=== PATIENT | male | born 1975 | race Caucasian/White ===

== ENCOUNTER 2019-09-27 23:45 | Emergency (ER) | payer BC ==
--- NOTE | 2019-09-27 23:47 | ERPHSYRPT ---
- History of Present Illness Time Seen by Provider: 09/27/19 23:47 Source: patient, family Exam Limitations: no limitations Physician History: 44 y/o white male presents to ED after being bit and scratched by his own pitbull dog. pt had six beers prior to being bit. pts dogs immunizations are not utd. pt was interviewed by police here in ED. pt has nkda. pts spouse states pt walked to restroom after incident so she could evaluated pts bites and scratches. pt then passed out hitting his head slightly. spouse thinks pt had vasovagal reaction. pt denies headache he denies cp. pts spouse brought pt to ED where he is awake alert and oriented walking to registration and then to his room. Timing/Duration: today Quality: burning, painful Severity: moderate Location: face, hands (left) Possible Causes: other (dog bite) Associated Symptoms: denies symptoms Allergies/Adverse Reactions: No Known Drug Allergies Allergy (Unverified 09/28/19 00:09) - Review of Systems Constitutional: No Symptoms Eyes: No Symptoms Ears, Nose, & Throat: No Symptoms Respiratory: No Symptoms Cardiac: No Symptoms Abdominal/Gastrointestinal: No Symptoms Genitourinary Symptoms: No Symptoms Musculoskeletal: No Symptoms Skin: Other (bite and abrasion to left hand and face) Neurological: No Symptoms Psychological: No Symptoms Endocrine: No Symptoms Hematologic/Lymphatic: No Symptoms Immunological/Allergic: No Symptoms All Other Systems: Reviewed and Negative - Past Medical History Neurological History: No Pertinent History ENT History: No Pertinent History Cardiac History: No Pertinent History Respiratory History: No Pertinent History Endocrine Medical History: No Pertinent History Musculoskeletal History: No Pertinent History GI Medical History: No Pertinent History History: No Pertinent History Psycho-Social History: No Pertinent History Male Reproductive Disorders: No Pertinent History - Past Surgical History Neuro Surgical History: No Pertinent History Cardiac: No Pertinent History Respiratory: No Pertinent History Gastrointestinal: No Pertinent History Genitourinary: No Pertinent History Musculoskeletal: No Pertinent History Male Surgical History: No Pertinent History - Nursing Vital Signs Nursing Vital Signs: Initial Vital Signs Temperature 97.5 F 09/27/19 23:53 Pulse Rate 79 09/27/19 23:53 Respiratory Rate 17 09/27/19 23:53 Blood Pressure 136/102 09/27/19 23:53 O2 Sat by Pulse Oximetry 98 09/27/19 23:53 Pain Scale Pain Intensity 10 - Physical Exam General Appearance: no apparent distress, alert Eye Exam: PERRL/EOMI, eyes nml inspection Ears, Nose, Throat Exam: normal ENT inspection, moist mucous membranes Neck Exam: normal inspection, non-tender, supple, full range of motion Respiratory Exam: normal breath sounds, lungs clear, airway intact, No chest tenderness, No respiratory distress Cardiovascular Exam: regular rate/rhythm, normal heart sounds, normal peripheral pulses Gastrointestinal/Abdomen Exam: soft, normal bowel sounds, No tenderness Rectal Exam: not done Back Exam: normal inspection, normal range of motion, No CVA tenderness, No vertebral tenderness Extremity Exam: other (several puncture wounds and abrasions left hand. no fb and no active bleeding. 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 superficial abrasions to face including forehead, nasal bridge and left upper lip) Lymphatic Exam: No adenopathy SpO2 Interpretation: normal O2 Delivery: Room Air - Course Nursing assessment & vital signs reviewed: Yes EKG Interpreted by Me: RATE (81), Sinus Rhythm, NORMAL AXIS, 1st degree AV Block , Other (no comparison ekg) Ordered Tests: Active Orders 24 hr Category Date Time Status EKG-ER Only STAT Care 09/28/19 00:17 Active HEAD WITHOUT CONTRAST [CT] Stat Exams 09/28/19 00:18 Taken Medication Summary Discontinued Medications Generic Name Dose Route Start Last Admin Trade Name Morgan PRN Reason Stop Dose Admin Acetaminophen 650 mg 09/28/19 00:17 09/28/19 00:33 Tylenol 325 Mg PO 09/28/19 00:18 650 mg STAT STA Administration Acetaminophen Confirm 09/28/19 00:30 Tylenol 325 Mg Administered 09/28/19 00:31 Dose 650 mg .ROUTE .STK-MED ONE Amoxicillin/Clavulanate Potassium 500 mg 09/28/19 00:16 09/28/19 00:33 Augmentin 500-125 Tablet PO 09/28/19 00:17 500 mg STAT ONE Administration Amoxicillin/Clavulanate Potassium Confirm 09/28/19 00:30 Augmentin 500-125 Tablet Administered 09/28/19 00:31 Dose 500 mg .ROUTE .STK-MED ONE Diphtheria/Tetanus/Acell Pertussis 0.5 ml 09/28/19 00:16 09/28/19 00:34 Adacel Vial IM 09/28/19 00:17 0.5 ml .ONCE ONE Administration Diphtheria/Tetanus/Acell Pertussis Confirm 09/28/19 00:30 Adacel Vial Administered 09/28/19 00:31 Dose 0.5 ml IM .STK-MED ONE - Progress Progress: improved Progress Note: 09/28/19 01:30 ct head no acute process Counseled pt/family regarding: diagnosis, need for follow-up, rad results - Departure Departure Disposition: Home Clinical Impression: Dog bite, Syncope Condition: Stable Critical Care Time: No Referrals: SHAHNAZ DIAZ [Primary Care Provider] - Additional Instructions: keep all sites clean daily with soap and water plus once daily hydrogen peroxide. no ointments, lotions or creams. follow up with primary doctor as needed. Prescriptions: Hydrocodone/APAP 5/325 [Noble 5/325 mg] 1 each PO Q12H PRN PRN #6 tablet MDD 2 PRN Reason: Pain Amoxicillin/Potassium Clav [Augmentin 500-125 Tablet] 500 mg PO TID #15 tablet
[2019-09-28] MEDS ORDERED: Augmentin 500-125 Tablet PO ONE (00:16)
[2019-09-28] MEDS ORDERED: Adacel Vial IM ONE ×2 (00:16→00:30)
[2019-09-28] MEDS ORDERED: TYLENOL 325 MG PO STA (00:17)
[2019-09-28] MEDS ORDERED: Augmentin 500-125 Tablet ONE (00:30)
[2019-09-28] MEDS ORDERED: TYLENOL 325 MG ONE (00:30)
[2019-09-28 01:43] VITALS: BP 119/67; PULSE 85; O2SAT 95
--- NOTE | 2019-09-28 05:59 | XRAY ---
Indication: Syncopal episode following dog attack. Multiple contiguous axial images obtained through the head without contrast. Comparison: None Normal appearing brain parenchyma, ventricles, and bony calvarium. Visualized paranasal sinuses and mastoid air cells are clear. Impression: Normal CT head without contrast exam. Comment: Preliminary interpretation was made by [facility]. No critical discrepancy. CTDI 44.42
== END 2019-09-28 01:38 | disposition home or self-care (01) ==
LOC: ED 23:45
DX: S60.512A Abrasion of left hand, initial encounter (principal); S00.81XA Abrasion of other part of head, initial encounter; W54.0XXA Bitten by dog, initial encounter; Y92.9 Unspecified place or not applicable; R55 Syncope and collapse; W01.198A Fall on same level from slipping, tripping and stumbling with subsequent striking against other object, initial encounter; Z72.89 Other problems related to lifestyle
CPT/HCPCS: 70450; 90471; 90715; 93005; 99284; A9270-GY